=== PATIENT | female | born 1990 | race Two or more races ===

== ENCOUNTER → 2018-11-07 17:43 | Outpatient (CLI) | payer SELFPAY | PROVIDERS: Referring Provider Obstetrics & Gynecology; Visit Provider Obstetrics & Gynecology | DX: Z12.4 Encounter for screening for malignant neoplasm of cervix (principal) | CPT/HCPCS: 88175; G0145 ==

== ENCOUNTER → 2022-04-26 | Outpatient (CLI) | payer SELFPAY | END | disposition home or self-care (01) | LOC: LABSPEC 14:45 | PROVIDERS: Visit Provider Obstetrics & Gynecology | DX: Z12.4 Encounter for screening for malignant neoplasm of cervix (principal) | CPT/HCPCS: 88175; G0145 ==

== ENCOUNTER → 2025-10-08 | Outpatient (CLI) | payer SELFPAY ==
--- NOTE | 2025-10-08 09:06 | RAD_ITS ---
PROCEDURE: ANKLE MIN 3 VIEWS 10/08/2025 REASON FOR EXAM: RIGH ANKLE SPRAIN TECHNIQUE: Procedure Code: RADANK Modality: DX Procedure: ANKLE MIN 3 VIEWS Laterality: Right COMPARISON: None FINDINGS: Bones: Transversely oriented (avulsion) fracture through the distal tip of the fibula. No significant displacement. Joints: Normal alignment Soft tissues: Soft tissue swelling RAD/Ankle min 3 Views IMPRESSION: Avulsion fracture of the distal fibular tip. Reading Location: [id number]
== END | disposition home or self-care (01) ==
PROVIDERS: Referring Provider Chiropractor Orthopedic; Visit Provider Chiropractor Orthopedic
DX: S93.401A Sprain of unspecified ligament of right ankle, initial encounter (principal); X58.XXXA Exposure to other specified factors, initial encounter
CPT/HCPCS: 73610